=== PATIENT | male | born 1970 | race Caucasian/White ===

== ENCOUNTER → 2016-10-22 | Outpatient (CLI) | payer MEDICARE ==
[~2016-10-22] MED LIST: COLACE 100MG C100 MG PO; COZAAR100 MG PO; IBUPROFEN600 MG PO; PERCOCET 7.5-31 EACH PO; PREVACID30 MG PO; TRAZODONE HCL100 MG PO; VISTARIL50 MG PO; VITAMIN B-1000 MCG/M IM; ZOFRAN4 MG PO
== END ==
LOC: KOH-I 13:53
DX: M25.512 Pain in left shoulder (principal); M25.511 Pain in right shoulder; M75.102 Unspecified rotator cuff tear or rupture of left shoulder, not specified as traumatic; Z98.890 Other specified postprocedural states
CPT/HCPCS: 73200; 73221

== ENCOUNTER → 2017-01-22 | Outpatient (CLI) | payer MEDICARE ==
[2017-01-22 10:47] LABS: RED BLOOD COUNT 4.6 M/UL (4.20-5.50); WHITE BLOOD COUNT 6.1 K/UL (4.5-11.0)
[2017-01-22 11:01] LABS: BUN/CREATININE RATIO 12 (0-10)
== END ==
LOC: OPSV2 01-21 10:00
PROVIDERS: Orthopaedic Surgery
DX: Z01.812 Encounter for preprocedural laboratory examination (principal); T84.84XA Pain due to internal orthopedic prosthetic devices, implants and grafts, initial encounter
CPT/HCPCS: 36415; 80048; 85027